=== PATIENT | male | born 1940 | race Caucasian/White ===

== ENCOUNTER 2018-03-05 03:16 | Emergency (ER) | payer OTHER ==
[2018-03-05 03:49] LABS: ADD MAN DIFF? NO
[2018-03-05] MEDS: LORAZEPAM 2 MG INJ IV (03:49)
[2018-03-05 03:50] LABS: BASOPHILS % 0.4 % (0.0-2.0); EOSINOPHILS # 0.3 10^3/ul (0.0-0.5); EOSINOPHILS % 4.3 % (0.0-7.0); HEMATOCRIT 42.1 % (42.0-52.0); HEMOGLOBIN 14.1 g/dl (14.0-18.0); LYMPHOCYTES # 2.5 10^3/ul (0.8-2.9); LYMPHOCYTES % 37.4 % (15.0-51.0); MEAN CORPUSCULAR HEMOGLOBIN 31.8 pg (29.0-33.0); MEAN CORPUSCULAR HGB CONC 33.5 g/dl (32.0-37.0); MEAN PLATELET VOLUME 9.3 fl (7.4-10.4); MONOCYTE # 0.7 10^3/ul (0.3-0.9); NEUTROPHIL # 3.2 10^3/ul (1.6-7.5); NEUTROPHILS % 47.8 % (39.0-77.0); PLATELET COUNT 212 10^3/UL (140-415); RED BLOOD COUNT 4.43 10^6/ul (4.70-6.10); RED CELL DISTRIBUTION WIDTH 13.6 % (11.5-14.5)
[2018-03-05 03:50] LABS: WHITE BLOOD COUNT 6.8 10^3/ul (4.8-10.8)
[2018-03-05 04:13] LABS: ANION GAP 6 (5-13); BLOOD UREA NITROGEN 21 mg/dl (7-20); CALCIUM 8.7 mg/dl (8.4-10.2); CARBON DIOXIDE 26 mmol/L (21-31); CHLORIDE 109 mmol/L (97-110); CREATININE 1.14 mg/dl (0.61-1.24); GLUCOSE 97 mg/dl (70-220); POTASSIUM 3.8 mmol/L (3.5-5.1); SODIUM 141 mmol/L (135-144)
[2018-03-05 04:25] LABS: B-TYPE NATRIURETIC PEPTIDE 52 PG/ML (0-450); TROPONIN-I < 0.012 ng/ml (0.000-0.120)
== END 2018-03-05 04:45 | disposition home or self-care (01) ==
LOC: E/R 03:16
DX: R06.02 Shortness of breath (principal); R40.2142 Coma scale, eyes open, spontaneous, at arrival to emergency department; R40.2252 Coma scale, best verbal response, oriented, at arrival to emergency department; R40.2362 Coma scale, best motor response, obeys commands, at arrival to emergency department
CPT/HCPCS: 36415; 71045; 80048; 83880; 84484; 85025; 93005; 96374; 99285-25

== ENCOUNTER 2018-04-08 13:13 | Emergency (ER) | payer OTHER ==
[2018-04-08] MEDS: ONDANSETRON 4 MG INJ IV (14:11)
[2018-04-08] MEDS: FAMOTIDINE 20 MG INJ IV (14:11)
[2018-04-08 14:12] LABS: ADD MAN DIFF? NO
[2018-04-08 14:20] LABS: WHITE BLOOD COUNT 6.4 10^3/ul (4.8-10.8)
[2018-04-08 14:20] LABS: BASOPHILS % 0.5 % (0.0-2.0); EOSINOPHILS # 0.2 10^3/ul (0.0-0.5); EOSINOPHILS % 3.1 % (0.0-7.0); HEMATOCRIT 42.6 % (42.0-52.0); HEMOGLOBIN 14.5 g/dl (14.0-18.0); LYMPHOCYTES # 1.6 10^3/ul (0.8-2.9); LYMPHOCYTES % 25.4 % (15.0-51.0); MEAN PLATELET VOLUME 9.5 fl (7.4-10.4); MONOCYTE # 0.5 10^3/ul (0.3-0.9); MONOCYTES % 7.8 % (0.0-11.0); NEUTROPHILS % 62.7 % (39.0-77.0); PLATELET COUNT 222 10^3/UL (140-415); RED BLOOD COUNT 4.53 10^6/ul (4.70-6.10); RED CELL DISTRIBUTION WIDTH 13.5 % (11.5-14.5)
[2018-04-08 14:35] LABS: ALANINE AMINOTRANSFERASE 45 IU/L (13-69); ALBUMIN 3.9 g/dl (3.3-4.9); ALBUMIN/GLOBULIN RATIO 1.25; ALKALINE PHOSPHATASE 98 IU/L (42-121); ANION GAP 9 (5-13); ASPARTATE AMINO TRANSFERASE 40 IU/L (15-46); BILIRUBIN,INDIRECT 1.5 mg/dl (0-1.1); BILIRUBIN,TOTAL 1.5 mg/dl (0.2-1.3); BLOOD UREA NITROGEN 17 mg/dl (7-20); CALCIUM 9.2 mg/dl (8.4-10.2); CARBON DIOXIDE 27 mmol/L (21-31); CHLORIDE 106 mmol/L (97-110); CREATININE 1.16 mg/dl (0.61-1.24); GLUCOSE 100 mg/dl (70-220); LIPASE 129 U/L (23-300); POTASSIUM 4.1 mmol/L (3.5-5.1); SODIUM 142 mmol/L (135-144)
[2018-04-08 14:46] LABS: TROPONIN-I < 0.012 ng/ml (0.000-0.120)
[2018-04-08 15:36] LABS: ADD UMIC YES; UR ASCORBIC ACID NEGATIVE (NEGATIVE); UR BILIRUBIN (Dip) NEGATIVE (NEGATIVE); UR BLOOD (Dip) 1+ mg/dL (NEGATIVE); UR CLARITY CLEAR (CLEAR); UR COLOR YELLOW (YELLOW); UR GLUCOSE (Dip) NEGATIVE (NEGATIVE); UR KETONES (Dip) NEGATIVE (NEGATIVE); UR LEUKOCYTE ESTERASE (Dip) NEGATIVE Leu/ul (NEGATIVE); UR NITRITE (Dip) NEGATIVE (NEGATIVE); UR RBC 8 /HPF (0-5); UR SPECIFIC GRAVITY (Dip) 1.014 (1.003-1.030); UR TOTAL PROTEIN (Dip) 1+ mg/dl (NEGATIVE); UR UROBILINOGEN (Dip) NEGATIVE (NEGATIVE); UR WBC 3 /HPF (0-5)
== END 2018-04-08 16:57 | disposition home or self-care (01) ==
LOC: E/R 13:13
DX: I10 Essential (primary) hypertension (principal); R40.2142 Coma scale, eyes open, spontaneous, at arrival to emergency department; R40.2362 Coma scale, best motor response, obeys commands, at arrival to emergency department; R40.2252 Coma scale, best verbal response, oriented, at arrival to emergency department; R10.13 Epigastric pain; F41.9 Anxiety disorder, unspecified
CPT/HCPCS: 36415; 80053; 81001; 83690; 84484; 85025; 93005; 96374; 96375; 99284-25

== ENCOUNTER 2018-04-15 10:11 | Emergency (ER) | payer OTHER ==
[2018-04-15] MEDS ORDERED: LABETALOL HCL 20MG INJ IV (11:00)
[2018-04-15 11:20] LABS: ADD MAN DIFF? NO
[2018-04-15] MEDS ORDERED: ONDANSETRON 4 MG INJ (11:22)
[2018-04-15] MEDS ORDERED: morphine 4 MG/ML VIAL (11:22)
[2018-04-15 11:24] LABS: BASOPHILS % 0.6 % (0.0-2.0); EOSINOPHILS # 0.1 10^3/ul (0.0-0.5); EOSINOPHILS % 2.9 % (0.0-7.0); HEMATOCRIT 44.9 % (42.0-52.0); HEMOGLOBIN 14.8 g/dl (14.0-18.0); LYMPHOCYTES # 1.5 10^3/ul (0.8-2.9); LYMPHOCYTES % 29.9 % (15.0-51.0); MEAN CORPUSCULAR HEMOGLOBIN 31.4 pg (29.0-33.0); MEAN CORPUSCULAR VOLUME 95.3 fl (82.0-101.0); MEAN PLATELET VOLUME 9.6 fl (7.4-10.4); MONOCYTE # 0.4 10^3/ul (0.3-0.9); MONOCYTES % 7.8 % (0.0-11.0); NEUTROPHIL # 2.9 10^3/ul (1.6-7.5); NEUTROPHILS % 58.6 % (39.0-77.0); PLATELET COUNT 231 10^3/UL (140-415); RED BLOOD COUNT 4.71 10^6/ul (4.70-6.10); RED CELL DISTRIBUTION WIDTH 13.1 % (11.5-14.5)
[2018-04-15 11:24] LABS: WHITE BLOOD COUNT 4.9 10^3/ul (4.8-10.8)
[2018-04-15] MEDS: ONDANSETRON 4 MG INJ IV (11:26)
[2018-04-15] MEDS: morphine 4 MG/ML VIAL IV (11:27)
[2018-04-15 11:43] LABS: PROTIME 12.2 Sec (11.9-14.9)
[2018-04-15 11:44] LABS: PARTIAL THROMBOPLASTIN TIME 28.6 Sec (23.0-35.0)
[2018-04-15 11:45] LABS: ALANINE AMINOTRANSFERASE 34 IU/L (13-69); ALBUMIN 4.2 g/dl (3.3-4.9); ALBUMIN/GLOBULIN RATIO 1.44; ALKALINE PHOSPHATASE 103 IU/L (42-121); ANION GAP 10 (5-13); ASPARTATE AMINO TRANSFERASE 30 IU/L (15-46); BILIRUBIN,INDIRECT 1.4 mg/dl (0-1.1); BILIRUBIN,TOTAL 1.4 mg/dl (0.2-1.3); BLOOD UREA NITROGEN 19 mg/dl (7-20); CALCIUM 9.1 mg/dl (8.4-10.2); CARBON DIOXIDE 24 mmol/L (21-31); CHLORIDE 105 mmol/L (97-110); CREATINE KINASE 137 IU/L (23-200); CREATININE 1.08 mg/dl (0.61-1.24); GLUCOSE 109 mg/dl (70-220); POTASSIUM 4.3 mmol/L (3.5-5.1); SODIUM 139 mmol/L (135-144); TOTAL PROTEIN 7.1 g/dl (6.1-8.1)
[2018-04-15 11:55] LABS: B-TYPE NATRIURETIC PEPTIDE 38 PG/ML (0-450); CK INDEX 1.2; CK-MB 1.65 ng/ml (0.0-2.4); TROPONIN-I < 0.012 ng/ml (0.000-0.120)
== END 2018-04-15 14:37 | disposition home or self-care (01) ==
LOC: E/R 10:11
DX: I16.0 Hypertensive urgency (principal); I10 Essential (primary) hypertension; G44.209 Tension-type headache, unspecified, not intractable
CPT/HCPCS: 70450; 71045; 80053; 82550; 82553; 83880; 84484; 85025; 85610; 85730; 93005; 96374; 96375; 99285-25

== ENCOUNTER 2018-11-30 13:34 | Emergency (ER) | payer OTHER ==
[2018-11-30 14:13] LABS: ADD MAN DIFF? NO
[2018-11-30 14:19] LABS: BASOPHILS % 0.6 % (0.0-2.0); EOSINOPHILS # 0.1 10^3/ul (0.0-0.5); EOSINOPHILS % 2.4 % (0.0-7.0); HEMOGLOBIN 15.5 g/dl (14.0-18.0); LYMPHOCYTES # 1.4 10^3/ul (0.8-2.9); LYMPHOCYTES % 27.4 % (15.0-51.0); MEAN CORPUSCULAR HEMOGLOBIN 31.6 pg (29.0-33.0); MEAN CORPUSCULAR HGB CONC 33.7 g/dl (32.0-37.0); MEAN CORPUSCULAR VOLUME 93.7 fl (82.0-101.0); MEAN PLATELET VOLUME 9.1 fl (7.4-10.4); MONOCYTE # 0.6 10^3/ul (0.3-0.9); NEUTROPHIL # 2.9 10^3/ul (1.6-7.5); NEUTROPHILS % 58.4 % (39.0-77.0); PLATELET COUNT 250 10^3/UL (140-415); RED BLOOD COUNT 4.91 10^6/ul (4.70-6.10); RED CELL DISTRIBUTION WIDTH 13.2 % (11.5-14.5)
[2018-11-30 14:39] LABS: ALANINE AMINOTRANSFERASE 31 IU/L (13-69); ALBUMIN 4.4 g/dl (3.3-4.9); ALBUMIN/GLOBULIN RATIO 1.41; ALKALINE PHOSPHATASE 85 IU/L (42-121); ANION GAP 10 (5-13); ASPARTATE AMINO TRANSFERASE 28 IU/L (15-46); BILIRUBIN,INDIRECT 1.6 mg/dl (0-1.1); BILIRUBIN,TOTAL 1.6 mg/dl (0.2-1.3); BLOOD UREA NITROGEN 15 mg/dl (7-20); CALCIUM 8.9 mg/dl (8.4-10.2); CARBON DIOXIDE 26 mmol/L (21-31); CHLORIDE 101 mmol/L (97-110); CREATININE 1.29 mg/dl (0.61-1.24); GLUCOSE 104 mg/dl (70-220); POTASSIUM 3.5 mmol/L (3.5-5.1); SODIUM 137 mmol/L (135-144); TOTAL PROTEIN 7.5 g/dl (6.1-8.1)
[2018-11-30 15:01] LABS: INR 0.92; PARTIAL THROMBOPLASTIN TIME 28.3 Sec (23.0-35.0); PROTIME 12.5 Sec (11.9-14.9)
[2018-11-30 15:34] LABS: ADD UMIC YES; UR ASCORBIC ACID NEGATIVE (NEGATIVE); UR BACTERIA FEW /HPF (NONE SEEN); UR BILIRUBIN (Dip) NEGATIVE (NEGATIVE); UR BLOOD (Dip) 3+ mg/dL (NEGATIVE); UR CLARITY CLOUDY (CLEAR); UR COLOR RED (YELLOW); UR GLUCOSE (Dip) NEGATIVE (NEGATIVE); UR KETONES (Dip) NEGATIVE (NEGATIVE); UR LEUKOCYTE ESTERASE (Dip) NEGATIVE Leu/ul (NEGATIVE); UR MUCUS FEW /HPF (NONE SEEN); UR NITRITE (Dip) NEGATIVE (NEGATIVE); UR NONSQUAMOUS EPITHELIAL CELL 4 /HPF (NONE SEEN); UR RBC > 182 /HPF (0-5); UR TOTAL PROTEIN (Dip) 2+ mg/dl (NEGATIVE); UR UROBILINOGEN (Dip) NEGATIVE (NEGATIVE); UR WBC > 182 /HPF (0-5)
[2018-11-30 15:58] LABS: UR SQUAMOUS EPITHELIAL CELL FEW /HPF (FEW)
== END 2018-11-30 18:38 | disposition home or self-care (01) ==
LOC: E/R 13:34
DX: N30.01 Acute cystitis with hematuria (principal); I10 Essential (primary) hypertension
CPT/HCPCS: 80053; 81001; 85025; 85610; 85730; 87086; 99283

== ENCOUNTER 2018-12-01 16:13 | Emergency (ER) | payer OTHER ==
[2018-12-01 17:14] LABS: ADD MAN DIFF? NO
[2018-12-01 17:21] LABS: BASOPHILS % 0.5 % (0.0-2.0); EOSINOPHILS # 0.1 10^3/ul (0.0-0.5); EOSINOPHILS % 1.7 % (0.0-7.0); HEMATOCRIT 41.3 % (42.0-52.0); HEMOGLOBIN 14.4 g/dl (14.0-18.0); LYMPHOCYTES # 1.7 10^3/ul (0.8-2.9); LYMPHOCYTES % 25.9 % (15.0-51.0); MEAN CORPUSCULAR HEMOGLOBIN 32.1 pg (29.0-33.0); MEAN CORPUSCULAR HGB CONC 34.9 g/dl (32.0-37.0); MEAN CORPUSCULAR VOLUME 92.2 fl (82.0-101.0); MEAN PLATELET VOLUME 9.2 fl (7.4-10.4); MONOCYTE # 0.7 10^3/ul (0.3-0.9); MONOCYTES % 9.8 % (0.0-11.0); NEUTROPHIL # 4.1 10^3/ul (1.6-7.5); NEUTROPHILS % 61.8 % (39.0-77.0); PLATELET COUNT 240 10^3/UL (140-415); RED BLOOD COUNT 4.48 10^6/ul (4.70-6.10)
[2018-12-01 17:21] LABS: WHITE BLOOD COUNT 6.6 10^3/ul (4.8-10.8)
[2018-12-01] MEDS: CEFTRIAXONE 1 GM/50 ML (PMX) 50 ML IVPB (17:26)
[2018-12-01] MEDS: SOD CHLORIDE 0.9% 1,000 ML IV (17:26)
[2018-12-01 17:35] LABS: ADD UMIC YES; UR ASCORBIC ACID NEGATIVE (NEGATIVE); UR BILIRUBIN (Dip) NEGATIVE (NEGATIVE); UR BLOOD (Dip) 2+ mg/dL (NEGATIVE); UR CLARITY CLEAR (CLEAR); UR COLOR YELLOW (YELLOW); UR GLUCOSE (Dip) NEGATIVE (NEGATIVE); UR KETONES (Dip) NEGATIVE (NEGATIVE); UR LEUKOCYTE ESTERASE (Dip) NEGATIVE Leu/ul (NEGATIVE); UR NITRITE (Dip) NEGATIVE (NEGATIVE); UR RBC 0 /HPF (0-5); UR SPECIFIC GRAVITY (Dip) 1.003 (1.003-1.030); UR TOTAL PROTEIN (Dip) NEGATIVE (NEGATIVE); UR UROBILINOGEN (Dip) NEGATIVE (NEGATIVE); UR WBC 0 /HPF (0-5)
[2018-12-01 17:39] LABS: ANION GAP 7 (5-13); BLOOD UREA NITROGEN 17 mg/dl (7-20); CALCIUM 8.5 mg/dl (8.4-10.2); CARBON DIOXIDE 27 mmol/L (21-31); CHLORIDE 102 mmol/L (97-110); GLUCOSE 135 mg/dl (70-220); POTASSIUM 3.3 mmol/L (3.5-5.1); SODIUM 136 mmol/L (135-144)
[2018-12-01 17:51] LABS: TROPONIN-I < 0.012 ng/ml (0.000-0.120)
== END 2018-12-01 19:00 | disposition home or self-care (01) ==
LOC: E/R 16:13
DX: R53.1 Weakness (principal); R40.2142 Coma scale, eyes open, spontaneous, at arrival to emergency department; R40.2362 Coma scale, best motor response, obeys commands, at arrival to emergency department; R40.2252 Coma scale, best verbal response, oriented, at arrival to emergency department; I10 Essential (primary) hypertension; Z87.891 Personal history of nicotine dependence
CPT/HCPCS: 36415; 71045; 80048; 81001; 84484; 85025; 93005; 96374; 99285-25

== ENCOUNTER 2018-12-05 23:40 | Inpatient (IN) | payer OTHER ==
[2018-12-06 00:50] LABS: ADD MAN DIFF? NO
[2018-12-06 00:56] LABS: BASOPHILS % 0.3 % (0.0-2.0); EOSINOPHILS # 0.1 10^3/ul (0.0-0.5); EOSINOPHILS % 2.2 % (0.0-7.0); HEMATOCRIT 43.2 % (42.0-52.0); HEMOGLOBIN 14.5 g/dl (14.0-18.0); LYMPHOCYTES # 1.7 10^3/ul (0.8-2.9); LYMPHOCYTES % 28.6 % (15.0-51.0); MEAN CORPUSCULAR HEMOGLOBIN 31.8 pg (29.0-33.0); MEAN CORPUSCULAR HGB CONC 33.6 g/dl (32.0-37.0); MEAN CORPUSCULAR VOLUME 94.7 fl (82.0-101.0); MEAN PLATELET VOLUME 9.3 fl (7.4-10.4); MONOCYTE # 1.1 10^3/ul (0.3-0.9); MONOCYTES % 18.1 % (0.0-11.0); NEUTROPHILS % 50.3 % (39.0-77.0); PLATELET COUNT 217 10^3/UL (140-415); RED BLOOD COUNT 4.56 10^6/ul (4.70-6.10); RED CELL DISTRIBUTION WIDTH 13.5 % (11.5-14.5)
[2018-12-06 01:15] LABS: INR 0.94; PROTIME 12.7 Sec (11.9-14.9)
[2018-12-06 01:16] LABS: ALANINE AMINOTRANSFERASE 34 IU/L (13-69); ALBUMIN 4.1 g/dl (3.3-4.9); ALBUMIN/GLOBULIN RATIO 1.28; ALKALINE PHOSPHATASE 87 IU/L (42-121); ANION GAP 9 (5-13); ASPARTATE AMINO TRANSFERASE 34 IU/L (15-46); BILIRUBIN,INDIRECT 1.1 mg/dl (0-1.1); BILIRUBIN,TOTAL 1.1 mg/dl (0.2-1.3); BLOOD UREA NITROGEN 20 mg/dl (7-20); CALCIUM 8.8 mg/dl (8.4-10.2); CARBON DIOXIDE 28 mmol/L (21-31); CHLORIDE 100 mmol/L (97-110); CHOL/HDL RATIO 3.7 RATIO; CHOLESTEROL 175 mg/dl (100-200); GLUCOSE 104 mg/dl (70-220); HDL CHOLESTEROL 47 mg/dl (31-75); LDL CHOLESTEROL,CALCULATED 105 mg/dl; LIPASE 276 U/L (23-300); PARTIAL THROMBOPLASTIN TIME 28.8 Sec (23.0-35.0); POTASSIUM 3.5 mmol/L (3.5-5.1); SODIUM 137 mmol/L (135-144); TOTAL PROTEIN 7.3 g/dl (6.1-8.1); TRIGLYCERIDES 113 mg/dl (0-149)
[2018-12-06] MEDS: ONDANSETRON 4 MG INJ IV (01:23)
[2018-12-06] MEDS: morphine 4 MG/ML VIAL IV (01:24)
[2018-12-06 01:27] LABS: B-TYPE NATRIURETIC PEPTIDE 39 PG/ML (0-450); TROPONIN-I < 0.012 ng/ml (0.000-0.120)
[2018-12-06] MEDS ORDERED: ONDANSETRON 4 MG INJ IV ×2 (03:00)
[2018-12-06] MEDS ORDERED: morphine 2 MG INJ IV (03:00)
[2018-12-06] MEDS ORDERED: ACETAMINOPHEN 325 MG TAB PO ×2 (03:00)
[2018-12-06] MEDS ORDERED: NACL 0.9% 3 ML SYG IV (03:00)
[2018-12-06] MEDS ORDERED: NITROGLYCERIN (SL) 0.4 MG TAB SL (03:00)
[2018-12-06] MEDS: AMLODIPINE 5 MG TAB PO (04:11)
[2018-12-06] MEDS: CEFTRIAXONE 1 GM/50 ML (PMX) 50 ML IVPB (04:11)
[2018-12-06] MEDS: SOD CHLORIDE 0.9% 500 ML IV (04:12)
[2018-12-06] MEDS: hydrALAzine 20 MG INJ IV (06:39)
[2018-12-06 07:13] LABS: ADD MAN DIFF? NO
[2018-12-06 07:17] LABS: BASOPHILS % 0.4 % (0.0-2.0); EOSINOPHILS % 0.7 % (0.0-7.0); HEMATOCRIT 39.3 % (42.0-52.0); HEMOGLOBIN 13.3 g/dl (14.0-18.0); LYMPHOCYTES # 1.2 10^3/ul (0.8-2.9); LYMPHOCYTES % 27.4 % (15.0-51.0); MEAN CORPUSCULAR HEMOGLOBIN 31.5 pg (29.0-33.0); MEAN CORPUSCULAR HGB CONC 33.8 g/dl (32.0-37.0); MEAN CORPUSCULAR VOLUME 93.1 fl (82.0-101.0); MEAN PLATELET VOLUME 9.6 fl (7.4-10.4); MONOCYTE # 0.9 10^3/ul (0.3-0.9); MONOCYTES % 19.7 % (0.0-11.0); NEUTROPHIL # 2.3 10^3/ul (1.6-7.5); NEUTROPHILS % 51.6 % (39.0-77.0); PLATELET COUNT 209 10^3/UL (140-415); RED BLOOD COUNT 4.22 10^6/ul (4.70-6.10); RED CELL DISTRIBUTION WIDTH 13.4 % (11.5-14.5)
[2018-12-06 07:17] LABS: WHITE BLOOD COUNT 4.5 10^3/ul (4.8-10.8)
[2018-12-06] MEDS ORDERED: LORAZEPAM 0.5 MG TAB PO (07:30)
[2018-12-06 07:36] LABS: CREATINE KINASE 113 IU/L (23-200)
[2018-12-06 07:39] LABS: ALANINE AMINOTRANSFERASE 35 IU/L (13-69); ALBUMIN 3.5 g/dl (3.3-4.9); ALBUMIN/GLOBULIN RATIO 1.16; ALKALINE PHOSPHATASE 72 IU/L (42-121); ANION GAP 7 (5-13); ASPARTATE AMINO TRANSFERASE 30 IU/L (15-46); BLOOD UREA NITROGEN 19 mg/dl (7-20); CALCIUM 8.5 mg/dl (8.4-10.2); CARBON DIOXIDE 30 mmol/L (21-31); CHLORIDE 98 mmol/L (97-110); CHOL/HDL RATIO 3.3 RATIO; CHOLESTEROL 162 mg/dl (100-200); CREATININE 1.29 mg/dl (0.61-1.24); GLUCOSE 111 mg/dl (70-220); HDL CHOLESTEROL 48 mg/dl (31-75); LDL CHOLESTEROL,CALCULATED 99 mg/dl; MAGNESIUM 1.9 mg/dl (1.7-2.5); POTASSIUM 3.7 mmol/L (3.5-5.1); SODIUM 135 mmol/L (135-144); TOTAL PROTEIN 6.5 g/dl (6.1-8.1); TRIGLYCERIDES 73 mg/dl (0-149)
[2018-12-06 07:48] LABS: CK INDEX 1.2; CK-MB 1.41 ng/ml (0.0-2.4); TROPONIN-I < 0.012 ng/ml (0.000-0.120)
[2018-12-06 08:02] LABS: HEMOGLOBIN A1C 5.4 % (0-5.9)
[2018-12-06] MEDS: FAMOTIDINE 20 MG TAB PO (08:47)
[2018-12-06 12:49] LABS: CREATINE KINASE 109 IU/L (23-200)
[2018-12-06 13:01] LABS: CK INDEX 1.1; TROPONIN-I < 0.012 ng/ml (0.000-0.120)
[2018-12-06] MEDS ORDERED: BARIUM SULF 2% 450 ML BTL (BERRY SMOOTHIE) PO (13:30)
[2018-12-06 14:53] LABS: ADD UMIC YES; UR ASCORBIC ACID NEGATIVE (NEGATIVE); UR BACTERIA FEW /HPF (NONE SEEN); UR BILIRUBIN (Dip) NEGATIVE (NEGATIVE); UR BLOOD (Dip) 3+ mg/dL (NEGATIVE); UR CLARITY CLEAR (CLEAR); UR COLOR YELLOW (YELLOW); UR GLUCOSE (Dip) NEGATIVE (NEGATIVE); UR KETONES (Dip) NEGATIVE (NEGATIVE); UR LEUKOCYTE ESTERASE (Dip) NEGATIVE Leu/ul (NEGATIVE); UR NITRITE (Dip) NEGATIVE (NEGATIVE); UR RBC 24 /HPF (0-5); UR SPECIFIC GRAVITY (Dip) 1.004 (1.003-1.030); UR TOTAL PROTEIN (Dip) NEGATIVE (NEGATIVE); UR UROBILINOGEN (Dip) NEGATIVE (NEGATIVE); UR WBC 3 /HPF (0-5)
[2018-12-06] MEDS: TAMSULOSIN (SR) 0.4 MG CAP PO (21:31)
[2018-12-06] MEDS: IOHEXOL 14.3 MG(I)/ML (ADULT) BTL PO (21:32)
[2018-12-07] MEDS: DOCUSATE SODIUM 100 MG CAP PO (04:29)
[2018-12-07] MEDS: BISACODYL (EC) 5 MG TAB PO (04:29)
[2018-12-07] MEDS: CEFTRIAXONE 1 GM/50 ML (PMX) 50 ML IVPB (04:29)
[2018-12-07 05:12] LABS: ADD MAN DIFF? NO; BASOPHILS % 0.4 % (0.0-2.0); EOSINOPHILS # 0.1 10^3/ul (0.0-0.5); EOSINOPHILS % 2.9 % (0.0-7.0); HEMATOCRIT 41.7 % (42.0-52.0); LYMPHOCYTES # 1.9 10^3/ul (0.8-2.9); MEAN CORPUSCULAR HGB CONC 33.6 g/dl (32.0-37.0); MEAN CORPUSCULAR VOLUME 95.2 fl (82.0-101.0); MEAN PLATELET VOLUME 9.5 fl (7.4-10.4); MONOCYTE # 0.6 10^3/ul (0.3-0.9); MONOCYTES % 13.7 % (0.0-11.0); NEUTROPHIL # 1.9 10^3/ul (1.6-7.5); NEUTROPHILS % 41.6 % (39.0-77.0); PLATELET COUNT 212 10^3/UL (140-415); RED BLOOD COUNT 4.38 10^6/ul (4.70-6.10); RED CELL DISTRIBUTION WIDTH 13.7 % (11.5-14.5)
[2018-12-07 05:12] LABS: WHITE BLOOD COUNT 4.5 10^3/ul (4.8-10.8)
[2018-12-07 05:31] LABS: ALANINE AMINOTRANSFERASE 30 IU/L (13-69); ALBUMIN 3.4 g/dl (3.3-4.9); ALBUMIN/GLOBULIN RATIO 1.09; ALKALINE PHOSPHATASE 70 IU/L (42-121); ANION GAP 3 (5-13); ASPARTATE AMINO TRANSFERASE 30 IU/L (15-46); BILIRUBIN,INDIRECT 1.1 mg/dl (0-1.1); BILIRUBIN,TOTAL 1.1 mg/dl (0.2-1.3); BLOOD UREA NITROGEN 21 mg/dl (7-20); CALCIUM 8.5 mg/dl (8.4-10.2); CARBON DIOXIDE 34 mmol/L (21-31); CHLORIDE 99 mmol/L (97-110); CREATININE 1.24 mg/dl (0.61-1.24); GLUCOSE 97 mg/dl (70-220); POTASSIUM 3.7 mmol/L (3.5-5.1); SODIUM 136 mmol/L (135-144); TOTAL PROTEIN 6.5 g/dl (6.1-8.1)
[2018-12-07] MEDS: FAMOTIDINE 20 MG TAB PO (09:05)
== END 2018-12-07 13:57 | disposition home or self-care (01) | DRG 313 ==
LOC: MS1 12-06 05:30 → E/R 23:40 → 6WM 12-06 02:34
DX: R07.9 Chest pain, unspecified (principal); N17.9 Acute kidney failure, unspecified; N39.0 Urinary tract infection, site not specified; E86.0 Dehydration; R00.1 Bradycardia, unspecified; I10 Essential (primary) hypertension; N40.0 Benign prostatic hyperplasia without lower urinary tract symptoms; R30.0 Dysuria
CPT/HCPCS: 36415; 71045; 74176; 80053; 80061; 81001; 82306; 82550; 82553; 83036; 83690; 83735; 83880; 84443; 84484; 85025; 85610; 85730; 87086; 93005; 93306; 96374; 96375; 99285-25